=== PATIENT | male | born 1950 | race American Indian/Alaskan Native ===

== ENCOUNTER 2017-09-18 11:24 | Emergency (ER) | payer MEDICARE ==
[2017-09-18 13:48] LABS: INR 1.19 (0.87-1.13)
[2017-09-18 13:49] LABS: Basophils # (Auto) 0.1 K/mm3 (0.0-0.1); Basophils % (Auto) 0.9 % (0.0-1.8); Eosinophils # (Auto) 0.2 K/mm3 (0.0-0.4); Eosinophils % (Auto) 2.5 % (0.0-4.3); Hematocrit 43.8 % (35.5-45.6); Hemoglobin 14.4 gm/dl (11.8-15.2); Lymphocytes # (Auto) 1.1 K/mm3 (1.2-5.4); Lymphocytes % (Auto) 12.4 % (13.4-35.0); Mean Corpuscular HGB Conc 33 % (32-34); Mean Corpuscular Hemoglobin 31 pg (28-32); Mean Corpuscular Volume 94 fl (84-94); Monocytes # (Auto) 0.6 K/mm3 (0.0-0.8); Partial Thromboplastin Time 32.4 Sec. (24.2-36.6); Platelet Count 244 K/mm3 (140-440); Red Blood Count 4.65 M/mm3 (3.65-5.03); Red Cell Distribution Width 13.7 % (13.2-15.2)
[2017-09-18 14:03] LABS: BUN/Creatinine Ratio 20; Blood Urea Nitrogen 16 mg/dL (9-20); Hemolysis Index 36
--- NOTE | 2017-09-18 14:09 | XRay Report ---
ROUTINE CHEST, TWO VIEWS: HISTORY: chest pain. A single lead pacemaker terminates in the right ventricle which is new since 07/13/16. The trachea, heart, mediastinal contour, lung pantoja and bony thorax are unremarkable. IMPRESSION: Unremarkable chest x-ray.
[2017-09-18 14:28] LABS: Chol/HDL Ratio 2.84 %; HDL Cholesterol 39 mg/dL (40-59); LDL Cholesterol,Direct 61 mg/dL (50-130)
[2017-09-18] MEDS ORDERED: DUONEB *Not for PRN Use IH ONE (18:17)
[2017-09-18] MEDS ORDERED: KIONEX PO ONE (18:17)
[2017-09-18] MEDS ORDERED: LASIX IV ONE (18:17)
--- NOTE | 2017-09-18 18:33 | Emergency Department Report ---
ED Shortness of Breath HPI - General Chief Complaint: Dyspnea/Respdistress Stated Complaint: SOB/DIZZINESS Time Seen by Provider: 09/18/17 18:02 Source: patient Mode of arrival: Ambulatory Limitations: No Limitations - History of Present Illness Initial Comments: 67 yo male who comes in today due to generalized weakness, shortness of breath, and cough. He states that he hasn't felt well since starting some of his medications and he recently had a pacemaker/defibrillatior placed. He also states that he can't walk several feet without getting shortness of breath and feeling exhausted. States that he saw his motocross racer two days ago and was informed that he's doing fine. He also admits to some chest tightness which was described as nonspecific. The chest tightness was described as midsternal, tightness, 3/10, with no associated nausea, vomiting, diaphoresis, or radiation. MD Complaint: shortness of breath, cough -: days(s) (several ) Severity: moderate Pain Scale: 3 Consistency: intermittent Improves With: rest Worsens With: exertion Known History Of: congestive heart failure Associated Symptoms: chest pain, cough, polyuria Treatments Prior to Arrival: none - Related Data Home Medications Medication Instructions Recorded Confirmed Last Taken AtorvaSTATin [Lipitor] 40 mg PO QDAY 08/23/16 08/23/16 08/20/16 Furosemide [Lasix TAB] 40 mg PO QDAY 08/23/16 08/23/16 08/20/16 Nitroglycerin [Nitrostat] 0.4 mg SL Q5M PRN 08/23/16 08/23/16 Unknown Previous Rx's Medication Instructions Recorded Last Taken Type Aspirin [Aspirin BABY CHEW TAB] 81 mg PO QDAY #30 tab.chew 07/17/16 08/20/16 Rx Carvedilol [Coreg] 6.25 mg PO BID #60 tablet 07/17/16 08/20/16 Rx Lisinopril [Zestril TAB] 5 mg PO QDAY #30 tablet 07/17/16 08/20/16 Rx Potassium Chloride [K-Dur] 20 meq PO Q12H #30 tablet 07/17/16 08/20/16 Rx Allergies Allergy/AdvReac Type Severity Reaction Status Date / Time No Known Allergies Allergy Verified 07/12/16 19:44 ED Review of Systems ROS: Stated complaint: SOB/DIZZINESS Other details as noted in HPI Constitutional: malaise, weakness Eyes: denies: eye pain, eye discharge, vision change ENT: denies: ear pain, throat pain Respiratory: see HPI, cough, shortness of breath Cardiovascular: as per HPI Endocrine: increased urine Gastrointestinal: denies: abdominal pain, nausea, diarrhea Genitourinary: denies: urgency, dysuria Musculoskeletal: denies: back pain, joint swelling, arthralgia Skin: denies: rash, lesions Neurological: denies: headache, weakness, paresthesias Psychiatric: denies: anxiety, depression Hematological/Lymphatic: denies: easy bleeding, easy bruising ED Past Medical Hx - Past Medical History Previous Medical History?: Yes Hx Congestive Heart Failure: Yes Hx Diabetes: No Hx Asthma: No Hx COPD: No - Surgical History Past Surgical History?: Yes Additional Surgical History: LEFT KNEE / SHOULDER, AICD - Social History Smoking Status: Never Smoker Substance Use Type: Alcohol, Prescribed - Medications Home Medications: Home Medications Medication Instructions Recorded Confirmed Last Taken Type Aspirin [Aspirin BABY CHEW TAB] 81 mg PO QDAY #30 tab.chew 07/17/16 08/23/16 Rx Carvedilol [Coreg] 6.25 mg PO BID #60 tablet 07/17/16 08/23/16 08/20/16 Rx Lisinopril [Zestril TAB] 5 mg PO QDAY #30 tablet 07/17/16 08/23/16 08/20/16 Rx Potassium Chloride [K-Dur] 20 meq PO Q12H #30 tablet 07/17/16 08/23/16 08/20/16 Rx AtorvaSTATin [Lipitor] 40 mg PO QDAY 08/23/16 08/23/16 08/20/16 History Furosemide [Lasix TAB] 40 mg PO QDAY 08/23/16 08/23/16 08/20/16 History Nitroglycerin [Nitrostat] 0.4 mg SL Q5M PRN 08/23/16 08/23/16 Unknown History ED Physical Exam - General Limitations: No Limitations General appearance: alert, in no apparent distress - Head Head exam: Present: atraumatic, normocephalic - Eye Eye exam: Present: normal appearance - ENT ENT exam: Present: mucous membranes moist - Neck Neck exam: Present: normal inspection - Respiratory Respiratory exam: Present: wheezes (diffusely ) - Cardiovascular Cardiovascular Exam: Present: regular rate, normal rhythm. Absent: systolic murmur, diastolic murmur, rubs, gallop - Extremities Exam Extremities exam: Present: other (bilateral lower extremity edema ) - Back Exam Back exam: Present: normal inspection - Neurological Exam Neurological exam: Present: alert, oriented X3 - Psychiatric Psychiatric exam: Present: normal affect, normal mood - Skin Skin exam: Present: warm, dry, intact, normal color. Absent: rash ED Course Vital Signs 09/18/17 09/18/17 09/18/17 12:39 17:26 18:45 Temperature 98.2 F 97.3 F L Pulse Rate 91 H 109 H 88 Respiratory 18 14 16 Rate Blood Pressure 124/84 Blood Pressure 129/90 112/79 [Left] O2 Sat by Pulse 100 100 99 Oximetry - Reevaluation(s) Reevaluation #1: 09/18/17 20:32 Patient admits to feeling better after treatment. Plan to discharge home with follow up with Cardiology on Saturday. He was instructed to speak with his Boiler Installer in regards to his medications. ED Medical Decision Making - Lab Data Result diagrams: 09/18/17 13:17 09/18/17 13:17 - EKG Data -: EKG Interpreted by Me EKG shows normal: sinus rhythm Rate: normal - EKG Data When compared to previous EKG there are: no significant change Interpretation: nonspecific ST-T wave jude - Radiology Data Radiology results: report reviewed (Chest radiograph-negative for any acute pathology ) - Medical Decision Making Hyperkalemia Shortness of breath Congestive heart failure Polypharmacy - Differential Diagnosis hyperkalemia, shortness of breath, congestive heart failure, polypharmacy Critical care attestation.: If time is entered above; I have spent that time in minutes in the direct care of this critically ill patient, excluding procedure time. ED Disposition Clinical Impression: CHF (congestive heart failure), Shortness of breath, Hyperkalemia, Polypharmacy Disposition: -01 TO HOME OR SELFCARE Is pt being admited?: No Does the pt Need Aspirin: No Condition: Stable Instructions: Heart Failure (ED) Additional Instructions: Please follow up with your Boiler Installer on discharge. Return to the ED for worsening chest pain, shortness of breath, or difficulty breathing. Referrals: PRIMARY CARE, [Primary Care Provider] - 3-5 Days Time of Disposition: 20:36
[2017-09-18] MEDS ORDERED: CALCIUM GLUCONATE 1,000 MG in NACL 0.9% 100 ML IV ONE (19:17)
[2017-09-18 21:15] VITALS: BP 118/85
== END 2017-09-18 21:15 | disposition home or self-care (01) ==
LOC: ED 11:24
DX: I50.9 Heart failure, unspecified (principal); E87.5 Hyperkalemia; R06.02 Shortness of breath
CPT/HCPCS: 36415; 71046; 80048; 80061; 83880; 84484; 85025; 85610; 85730; 93005; 93010; 96374; 96375; 99284; J0610; J1940

== ENCOUNTER 2018-02-03 15:15 | Emergency (ER) | payer MEDICARE ==
[2018-02-03 16:46] VITALS: BP 110/73
[2018-02-03 17:49] LABS: Basophils # (Auto) 0.1 K/mm3 (0.0-0.1); Basophils % (Auto) 1.1 % (0.0-1.8); Eosinophils # (Auto) 0.4 K/mm3 (0.0-0.4); Eosinophils % (Auto) 4.5 % (0.0-4.3); Hemoglobin 14.9 gm/dl (11.8-15.2); Lymphocytes # (Auto) 1.9 K/mm3 (1.2-5.4); Lymphocytes % (Auto) 23.9 % (13.4-35.0); Mean Corpuscular HGB Conc 33 % (32-34); Mean Corpuscular Hemoglobin 32 pg (28-32); Mean Corpuscular Volume 97 fl (84-94); Monocytes # (Auto) 0.8 K/mm3 (0.0-0.8); Monocytes % (Auto) 9.9 % (0.0-7.3); Platelet Count 231 K/mm3 (140-440); Red Blood Count 4.73 M/mm3 (3.65-5.03); Red Cell Distribution Width 13.3 % (13.2-15.2)
--- NOTE | 2018-02-03 17:57 | Cat Scan Report ---
FINAL REPORT PROCEDURE: CT HEAD/BRAIN WO CON TECHNIQUE: Computerized tomography of the head was performed without contrast material. HISTORY: Altered mental status COMPARISON: No prior studies are available for comparison. FINDINGS: Brain: Brain density appears normal. No evidence of intracranial hemorrhage. No parenchymal hemorrhage, mass lesions or mass effect are seen. No abnormal extraxial fluid collects or masses are seen. Ventricles: Ventricles are normal size and are midline. Bone Windows: No evidence of skull fracture. Paranasal sinuses: There is mild patchy mucosal thickening in a few of the ethmoid air cells. Visualized portions of the paranasal sinuses otherwise appear clear. Mastoid air cells: Clear IMPRESSION: Minimal paranasal sinus disease otherwise negative exam.
[2018-02-03 18:07] LABS: Alanine Aminotransferase 15 units/L (7-56); Albumin 3.7 g/dL (3.9-5); BUN/Creatinine Ratio 16; Blood Urea Nitrogen 13 mg/dL (9-20); Calcium 9.1 mg/dL (8.4-10.2); Hemolysis Index 19
[2018-02-03 22:23] LABS: Bilirubin,Urine NEG (Negative); Blood,Urine NEG (Negative); Color,Urine Yellow (Yellow); Hyaline Casts,Urine 1 /LPF; Mucus,Urine FEW /HPF; WBC,Urine < 1.0 /HPF (0.0-6.0)
[2018-02-03 22:30] LABS: Amphetamine Screen,Urine PRESUMPTIVE NEGATIVE; Benzodiazepines Screen,Urine PRESUMPTIVE NEGATIVE; Cannabinoid Screen,Urine PRESUMPTIVE NEGATIVE; Cocaine Screen,Urine PRESUMPTIVE NEGATIVE; Methadone Screen,Urine PRESUMPTIVE NEGATIVE; Opiate Screen,Urine PRESUMPTIVE NEGATIVE
== END 2018-02-03 22:54 | disposition left against medical advice (07) ==
LOC: ED 15:15
DX: R47.81 Slurred speech (principal); R41.82 Altered mental status, unspecified; Z53.21 Procedure and treatment not carried out due to patient leaving prior to being seen by health care provider
CPT/HCPCS: 36415; 70450; 80053; 80307; 81001; 84443; 85025; 93005; 93010; G0480; 80320